=== PATIENT | male | born 2000 | race African-American/Black ===

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

== ENCOUNTER 2023-10-19 11:13 | Emergency (ER) | payer OTHER, SELFPAY ==
[2023-10-19] MEDS ORDERED: Ibuprofen 200 MG TAB ONE (12:14)
== END 2023-10-19 12:24 | disposition home or self-care (01) ==
LOC: ERS 11:13
DX: S60.222A Contusion of left hand, initial encounter (principal); W20.8XXA Other cause of strike by thrown, projected or falling object, initial encounter